=== PATIENT | female | born 1995 | race American Indian/Alaskan Native ===

== ENCOUNTER 2020-05-12 20:50 | Emergency (ER) | payer MEDICAID ==
[2020-05-12 23:49] VITALS: BP 127/76
[2020-05-13 00:58] LABS: Basophils % (Auto) 0.3 % (0.0-1.8); Eosinophils # (Auto) 0.1 K/mm3 (0.0-0.4); Eosinophils % (Auto) 0.8 % (0.0-4.3); Hematocrit 39.8 % (30.3-42.9); Hemoglobin 13.5 gm/dl (10.1-14.3); Lymphocytes # (Auto) 1.6 K/mm3 (1.2-5.4); Lymphocytes % (Auto) 17.2 % (13.4-35.0); Mean Corpuscular HGB Conc 34 % (30-34); Mean Corpuscular Volume 82 fl (79-97); Monocytes # (Auto) 0.5 K/mm3 (0.0-0.8); Monocytes % (Auto) 5.5 % (0.0-7.3); Platelet Count 237 K/mm3 (140-440); Red Blood Count 4.86 M/mm3 (3.65-5.03); Red Cell Distribution Width 13.6 % (13.2-15.2)
[2020-05-13 02:12] LABS: Bacteria,Urine 2+ /HPF (Negative); Bilirubin,Urine NEG (Negative); Blood,Urine NEG (Negative); Color,Urine Yellow (Yellow); Mucus,Urine FEW /HPF; Urobilinogen,Urine < 2.0 mg/dL (<2.0)
--- NOTE | 2020-05-13 03:29 | Ultrasound Report ---
OB Ultrasound HISTORY: vaginal bleeding. TECHNIQUE: Grayscale and color imaging performed. COMPARISON: None FINDINGS: Cervix measures 2.7 cm in length. The uterus measures 14.2 x 5.7 x 8.9 cm with endometrial echo complex measuring 2.5 cm per there is an intrauterine gestation with crown-rump length of 4 cm w hich corresponds with an EGA of 10 weeks 6 days and estimated delivery date of 12/03/2020 heart rate i s 176 bpm. There is a simple cyst in the left ovary measuring 3 cm. Right ovary is not visualized. No significant pelvic free fluid. IMPRESSION: Single viable intrauterine gestation with no acute abnormality. Signer Name: Cj Belle MD Signed: 05/13/2020 3:25 AM Workstation Name: [id number]
--- NOTE | 2020-05-13 04:34 | Emergency Department Report ---
ED Female HPI - General Chief complaint: Vaginal Bleeding Stated complaint: VAGINAL IRRATATION,DISCHARGE/SPOTTING Time Seen by Provider: 05/13/20 03:44 Source: patient Mode of arrival: Ambulatory Limitations: No Limitations - History of Present Illness Initial comments: 25-year-old female presents emergency department complaining a couple day history of vaginal spotting the last episode was yesterday which was associated with cramping which have now since resolved and some whitish malodorous vaginal discharge with minimal pruritus of an unknown etiology. MD Complaint: vaginal bleeding, vaginal discharge -: Gradual Location: suprapubic Radiation: non-radiating Severity: mild, moderate Quality: dull, burning Consistency: constant Improves with: none Worsens with: none Are you Now?: Yes Associated Symptoms: vaginal discharge, vaginal bleeding. denies: nausea/vomiting, fever/chills, loss of appetite, dysuria, hematuria, shortness of breath, syncope, weakness - Related Data Previous Rx's Medication Instructions Recorded Last Taken Type cephALEXin [Keflex] 500 mg PO Q8HR #21 cap 05/13/20 Unknown Rx metroNIDAZOLE [Flagyl] 500 mg PO Q12HR #14 tab 05/13/20 Unknown Rx Allergies Allergy/AdvReac Type Severity Reaction Status Date / Time No Known Allergies Allergy Unverified 05/12/20 23:49 ED Review of Systems ROS: Stated complaint: VAGINAL IRRATATION,DISCHARGE/SPOTTING Other details as noted in HPI Comment: All other systems reviewed and negative ED Past Medical Hx - Past Medical History Previous Medical History?: No - Surgical History Past Surgical History?: No - Social History Smoking Status: Never Smoker Substance Use Type: None - Medications Home Medications: Home Medications Medication Instructions Recorded Confirmed Last Taken Type cephALEXin [Keflex] 500 mg PO Q8HR #21 cap 05/13/20 Unknown Rx metroNIDAZOLE [Flagyl] 500 mg PO Q12HR #14 tab 05/13/20 Unknown Rx ED Physical Exam - General Limitations: No Limitations General appearance: alert, in no apparent distress - Head Head exam: Present: atraumatic, normocephalic - Eye Eye exam: Present: normal appearance, PERRL Pupils: Present: normal accommodation - ENT ENT exam: Present: normal exam, normal orophraynx, mucous membranes moist, TM's normal bilaterally - Neck Neck exam: Present: normal inspection, full ROM - Respiratory Respiratory exam: Present: normal lung sounds bilaterally. Absent: respiratory distress, wheezes, rales, rhonchi, chest wall tenderness, accessory muscle use - Cardiovascular Cardiovascular Exam: Present: regular rate, normal rhythm. Absent: systolic murmur, diastolic murmur, rubs, gallop - GI/Abdominal GI/Abdominal exam: Present: soft, normal bowel sounds - Extremities Exam Extremities exam: Present: normal inspection, full ROM, normal capillary refill - Back Exam Back exam: Present: normal inspection. Absent: CVA tenderness (R), CVA tenderness (L) - Neurological Exam Neurological exam: Present: alert, oriented X3, CN II-XII intact, normal gait - Psychiatric Psychiatric exam: Present: normal affect, normal mood. Absent: anxious, flat affect - Skin Skin exam: Present: warm, dry, intact, normal color. Absent: rash ED Course Vital Signs 05/12/20 23:45 Temperature 99.4 F Pulse Rate 115 H Respiratory 16 Rate Blood Pressure 127/76 O2 Sat by Pulse 96 Oximetry ED Medical Decision Making - Lab Data Result diagrams: 05/13/20 00:19 - Radiology Data Radiology results: report reviewed [facility] [address] [place] [address] Ultrasound Report Signed Patient: SPENCER ALEXANDRA MR #: [id number] : 1995 Acct:[id number] Age/Sex: 25 / F ADM Date: 05/12/20 Loc: ED Attending Dr: Ordering Physician: ED MD YUE Date of Service: 05/13/20 Procedure(s): US OB <= 14 weeks fetus Accession Number(s): [id number] cc: ED DOCMD OB Ultrasound HISTORY: vaginal bleeding. TECHNIQUE: Grayscale and color imaging performed. COMPARISON: None FINDINGS: Cervix measures 2.7 cm in length. The uterus measures 14.2 x 5.7 x 8.9 cm with endometrial echo complex measuring 2.5 cm per there is an intrauterine gestation with crown-rump length of 4 cm which corresponds with an EGA of 10 weeks 6 days and estimated delivery date of 12/03/2020 heart rate is 176 bpm. There is a simple cyst in the left ovary measuring 3 cm. Right ovary is not visualized. No significant pelvic free fluid. IMPRESSION: Single viable intrauterine gestation with no acute abnormality. Signer Name: Cj Belle MD Signed: 05/13/2020 3:25 AM Workstation Name: [id number] Transcribed By: FRANSISCA Dictated By: Cj Belle MD Electronically Authenticated By: Cj Belle MD Signed Date/Time: 05/13/20324 DD/ 3 TD/TT: - Medical Decision Making This patient presents with vaginal bleeding in the first trimester, differential diagnosis includes ectopic , IUP, month threatened/inevitable , along with a completed . Patient is HDS and without a history of coagulopathy or infectious symptoms. The ultrasound does reveal an IUP at \ weeks with an elevated hCG quant Based on exam history and ED work-up patient presentation is not consistent with an ectopic , life-threatening coagulopathy, trauma, serious bacterial infection, central process or other emergency Critical care attestation.: If time is entered above; I have spent that time in minutes in the direct care of this critically ill patient, excluding procedure time. ED Disposition Clinical Impression: Threatened miscarriage in early , UTI (urinary tract infection) Disposition: DC-01 TO HOME OR SELFCARE Is pt being admited?: No Does the pt Need Aspirin: No Condition: Stable Instructions: Threatened Miscarriage, Vaginal Bleeding During , First Trimester, Urinary Tract Infection, Adult, [id number] Prescriptions: metroNIDAZOLE [Flagyl] 500 mg PO Q12HR #14 tab cephALEXin [Keflex] 500 mg PO Q8HR #21 cap Referrals: PRIMARY MD BENNETT [Primary Care Provider] - 3-5 Days [facility] [Provider Group] - 3-5 Days
== END 2020-05-13 04:47 | disposition home or self-care (01) ==
LOC: ED 20:50
DX: O20.0 Threatened abortion (principal); O23.40 Unspecified infection of urinary tract in pregnancy, unspecified trimester; Z3A.00 Weeks of gestation of pregnancy not specified; Z79.899 Other long term (current) drug therapy
CPT/HCPCS: 36415; 76801; 81001; 84702; 85025; 86900; 86901; 87086